=== PATIENT | female | born 1970 | race Caucasian/White ===

== ENCOUNTER → 2020-02-24 10:43 | Outpatient (CLI) | payer MEDICARE ==
--- NOTE | ~2020-02-24 | ST ---
PATIENT:DAYAN PINK MEDICAL RECORD: [id number] SEX: F LOCATION:[facility] ORDER #: ADMISSION DATE: 02/24/20 AGE OF PATIENT: 49 REFERRING PHYSICIAN: INTERPRETING PHYSICIAN: STEVEN MALDONADO MD DATE OF SERVICE: 02/24/2020 Nuclear stress test INDICATION: Angina and coronary artery disease. She was exercised on standard Lexiscan protocol with 33 mCi of sestamibi injected at peak stress, 11 mCi were used previously for rest images. FINDINGS: Gated SPECT reveals preserved ejection fraction at 70% with good wall motion and thickening and brightening throughout all segments. SPECT IMAGING: Cardiolite was used as myocardial perfusion agent. There is reversibility anteriorly, this includes the basal, mid, apical, and anterior segments. The degree of reversibility is moderate. The amount of myocardium involved is moderate. OVERALL IMPRESSION: 1. This is an intermediate risk abnormal nuclear stress test with reversible ischemia anteriorly. 2. Gated SPECT reveals preserved ejection fraction at 70%, current scan does suggest presence of hemodynamically significant coronary artery disease and is intermediate risk abnormal. TRANSINT:[id number] Voice Confirmation ID: [id number] DOCUMENT ID: [id number] STEVEN MALDONADO MD CC: [id number] DICTATION DATE: 02/25/20 1116 ANALYSIS DIRECTOR: 02/25/201926 DEP CLI 02/24/20 [address] [place] [address]
== END | disposition home or self-care (01) ==
LOC: D.HCCARDIO 10:43
PROVIDERS: ATTEND Internal Medicine Interventional Cardiology
DX: I20.9 Angina pectoris, unspecified (principal)

== ENCOUNTER 2020-03-04 07:37 | Outpatient (CLI) | payer MEDICARE ==
[~2020-03-04] VITALS: Ht 157.5 cm; Wt 71.8 kg
--- NOTE | ~2020-03-04 | HEMODYNAMI ---
PATIENT:DAYAN PINK MEDICAL RECORD: [id number] : 74 LOCATION:[facility] ADMISSION DATE: 03/04/20 Generatedon:03/04/202011:26 Patient name: DAYAN PINK Patient #: [id number] SSN: : 1970 Date of study: 03/04/2020 Page: Of Hemodynamic Procedure Report Patient Data Patient Demographics Procedure consent was obtained First Name: DAYAN Gender: Female Last Name: JOESPH : 1970 [facility] Initial: EMILY Age: 49 year(s) Patient #: [id number] Race: Unknown Additional ID: [id number] Contact details Address: [address] [place] [address] State: [place] City: [place] Zip code: [address] Past Medical History Performed procedures and imaging results Date Procedure Procedure Results Comments Stress testing Positive->Intermediate with SPECT MPI risk Allergies Allergen Reaction Date Comments Reported Other allergy 03/04/2020 MORPHINE, CODIENE Admission Admission Data Admission Date: 03/04/2020 Admission Time: 7:37 Lab Results Lab Result Date: 03/04/2020 Lab Result Time: 0:00 Biochemistry Name Units Result Min Max BUN mg/dl 14 --(--*-)-- 7 18 Creatinine mg/dl 0.8 --(-*--)-- 0.6 1.3 eGFR ml/min 81 *-(----)-- 90 120 NONAFRICAN CBC Name Units Result Min Max Hematocrit % 34.6 *-(----)-- 42 54 Hemoglobin g/dl 11.2 *-(----)-- 13.5 17.5 Procedure Procedure Types Cath Procedure Diagnostic Procedure LHC LH w/Coronaries Sedation Charges Moderate Sedation up to 15 minutes Procedure Description Procedure Date Procedure Date: 03/04/2020 Procedure Start Time: 10:46 Procedure End Time: 10:59 Procedure Staff Name Function Henrique Robledo MD Performing Physician Gaby Lafleur RT Scrub Evonne Knight RT Monitor Kendy Andrews RN Nurse Procedure Data Cath Procedure Fluoroscopy Diagnostic fluoroscopy Total fluoroscopy Time: 2.6 time: 2.6 min min Diagnostic fluoroscopy Total fluoroscopy dose: 320 dose: 320 mGy mGy Contrast Material Contrast Material Type Amount (ml) Isovue 300 35 Entry Location Entry Primary Successful Side Size Upsize Upsize Entry Closure Johnson ccessful Closure Location (Fr) 1 (Fr) 2 (Fr) Remarks Device Remarks Radial Right 6 Fr Mechanical artery Short Compression Estimated blood loss: 5 ml Diagnostic catheters Device Type Used For End Catheter Placement DIAGNOSTIC Peck 110cm 5 Procedure Fr catheter ([id number]) DIAGNOSTIC AR MOD 5Fr Procedure Catheter ([id number]) Procedure Complications No complications Procedure Medications Medication Administration Route Dosage 0.9% NaCl I.V. 100 ml/hr Oxygen etCO2 Nasal cannula 2 l/min Lidocaine 2% added to field 20 Heparin Flush Bag added to field 2 bags (1000units/500ml NS) Radial Cocktail added to field 1 syringe (Verapamil 2mg/Nitro 400mcg/Heparin 1500units) Versed I.V. 2 mg Fentanyl I.V. 50 mcg Versed I.V. 2 mg Fentanyl I.V. 50 mcg Hemodynamics Rest HGB: 11.2 (g/dl) Heart Rate: 106 (bpm) Pressure Samples Time Site Value (mmHg) Purpose Heart Use Rate(bpm) 10:50 LV 135/5,10 Snapshot 106 10:51 LV 134/8,8 Pullback 89 10:51 AO 135/86(109) Pullback 89 Gradients Valve Time Site 1 Site 2 Mean SEP/DFP Peak To Heart Use (mmHg) (sec/min) Peak Rate (mmHg) (bpm) Aortic 10:51 LV AO 0 8 0 89 134/8,8 135/86(109) Calculations Valve P-P Mean Valve Index Valve Source Name Gradient Area Flow (cm2) Aortic 0 0 0 0 Snapshots Pre Cath Intra NCS Post Cath Vital Signs Time Heart Resp SPO2 etCO2 NIBP (mmHg) Rhythm Pain Sedation Rate (ipm) (%) (mmHg) Status Level (bpm) 10:38:04 74 12 100 45.3 154/89(127) NSR 0 (11) 10(A) , No pain 10:42:22 79 16 99 43 148/88(133) NSR 0 (11) 10(A) , No pain 10:46:36 79 17 100 45.3 142/89(122) NSR 0 (11) 10(A) , No pain 10:50:56 88 11 93 43 143/75(111) NSR 0 (11) 10(A) , No pain 10:55:16 94 18 98 42 139/78(106) NSR 0 (11) 10(A) , No pain 10:59:31 84 11 98 46.8 137/84(104) NSR 0 (11) 10(A) , No pain Medications Time Medication Route Dose Verified Delivered Reason Notes E ffectiveness by by 10:32:40 0.9% NaCl I.V. 100 Henrique Kendy used for ml/hr Venkat Darryl procedure MD DIANA 10:32:47 Oxygen etCO2 2 l/min Henrique Kendy used for Nasal [facility] procedure cannula MD DIANA 10:32:53 Lidocaine 2% added 20ml Henrique Duenas for local to vial [facility] anesthetic field MD FU 10:33:00 Heparin Flush added 2 bags Henrique Duenas used for Bag to [facility] procedure (1000units/500ml field MD FU NS) 10:33:07 Radial Cocktail added 1 Henrique Duenas used for ([facility] MD FU 400mcg/Hepari 10:44:14 Versed I.V. 2 mg Henrique Kendy for [facility] sedation MD DIANA 10:44:19 Fentanyl I.V. 50 mcg Henrique Kendy for [facility] sedation MD DIANA 10:50:02 Versed I.V. 2 mg Henrique Kendy for [facility] sedation MD DIANA 10:50:10 Fentanyl I.V. 50 mcg Henrique Kendy for [facility]kat[facility] sedation MD DIANAclam dredger Log Time Note 10:20:23 Informed consent obtained and on chart 10:20:55 Procedure Status Elective Heart Cath (OP). 10:20:56 Gaby Lafleur RT(R) sent for patient. Start room use. 10:20:57 Time tracking: Regular hours (M-F 7:00 - 5:00) 10:21:00 Plan of Care:Hemodynamics will remain stable., Cardiac rhythm will remain stable., Comfort level will be maintained., Respiratory function will remain adequate., Patient/ family verbilizes understanding of procedure., Procedure tolerated without complication., Recovers from procedure without complications.. 10::29 Patient allergic to Other allergyMORPHINE, CODIENE 10::32 Lab Result : Hemoglobin 11.2 g/dl :: Lab Result : Hematocrit 34.6 % :: Lab Result : eGFR NONAFRICAN 81 ml/min 10::32 Lab Result : BUN 14 mg/dl :: Lab Result : Creatinine 0.8 mg/dl 10:27:02 Dentures? No ? 10:27:03 Previous problem with sedation/anesthesia? No ? 10:27:04 Warm blankets applied, and stella hugger turned on for patient comfort. 10:27:05 Is patient on blood thinner?No 10:27:09 Opens mouth fully? Yes 10:27:09 H&P Date Dictated: 02/04/2020 Within 30 days and on chart., H&P Addendum completed by physician on day of procedure. (MUST COMPLETE FOR ALL OUTPATIENTS). 10:27:11 Patient NPO since Midnight. 10:27:12 Pre-procedure instructions explained to patient. 10:27:18 Lab results completed and on chart. 10:27:20 Correct patient and procedure confirmed by team. 10:27:24 Sticks out tongue? Yes 10:27:27 Snore? Yes 10:27:28 Patient not . Patient has had tubal. 10:27:29 Is the patient allergic to Iodine/contrast media? No. 10:27:31 Pre-op teaching completed and patient verbalized understanding. 10:27:35 Patient received from Pre/Post Procedure Room to CCL 1 Alert and oriented. Tansferred to table in Supine position. 10:27:38 Airway obstruction? No ? 10:27:40 Sleep apnea? No 10:27:44 ----Pre-sedation anethsthesia assessment.---- 10:27:45 IV patent on arrival in left hand with 0.9% NaCl at [facility]. 10:27:47 Was the patient premedicated? Yes 10:27:47 Rhythm: sinus rhythm 10:27:50 Family unavailable. 10:27:54 Deviated septum? No 10:28:39 Stress Test: yes; abnormal ANTERIOR 10:30:03 Risk of Mortality: .1 10:30:06 Risk of blood transfusion: 3.6 10:30:08 Risk of PAUL: 2.2 10:32:40 0.9% NaCl 100 ml/hr I.V. was administered by Kendy Andrews RN; used for procedure; Verbal order read back and verified. 10:32:47 Oxygen 2 l/min etCO2 Nasal cannula was administered by Kendy Andrews RN; used for procedure; Verbal order read back and verified. 10:32:53 Lidocaine 2% 20ml vial added to field was administered by Henrique Robledo MD; for local anesthetic; Verbal order read back and verified. 10:33:00 Heparin Flush Bag (1000units/500ml NS) 2 bags added to field was administered by Henrique Robledo MD; used for procedure; Verbal order read back and verified. 10:33:07 Radial Cocktail (Verapamil 2mg/Nitro 400mcg/Heparin 1500units) 1 syringe added to field was administered by Henrique Robledo MD; used for procedure; Verbal order read back and verified. 10:36:34 Right Radial & Right Groin area was prepped with chlora-prep and draped in sterile fashion 10:36:36 Alarms reviewed by R. N. 10:36:37 Sharps counted by scrub and verified by R.N. 10:36:43 Use device set Radial Dx or PCI 10:36:45 ACIST Syringe (99664) opened to sterile field. 10:36:46 Bag Decanter (2002) opened to sterile field. 10:36:46 Medline Cath Pack ([id number]) opened to sterile field. 10:36:47 ACIST Hand Control (85720) opened to sterile field. 10:36:48 ACIST Manifold (71406) opened to sterile field. 10:36:50 MBrace Wrist Support ([id number]) opened to sterile field. 10:36:50 Vital chart was started 10:36:54 SHEATH 6FR RAIN (7807660) opened to sterile field. 10:36:55 EMERALD Guide Wire (938-903) opened to sterile field. 10:42:45 Physician arrived 10:42:46 --------ALL STOP TIME OUT------ 10:42:47 Final Timeout: patient, procedure, and site verified with staff and physician. All members of the team are in agreement. 10:42:51 Right Radial & Right Groin site verified by team. 10:43:07 Fire Safety Assessment: A--An alcohol-based skin anteseptic being used preoperatively., C--Open oxygen or nitrous oxide is being used., D--An ESU, laser, or fiber-optic light is being used. 10:43:11 Physical assessment completed. ASA score P 2 - A patient with mild systemic disease as per Henrique Robledo MD. 10:43:17 2) 60-89 Mildly reduced kidney function, and other findings (as for stage 1) point to kidney disease. 10:43:25 Maximum allowable contrast dose (3.7 X eGFR X 0.75)225 ml. 10:43:31 Sedation plan: IV Moderate Sedation Medication:Versed, Fentanyl 10:43:59 Zero performed for pressure channel P1 10:44:14 Versed 2 mg I.V. was administered by Kendy Andrews RN; for sedation; Verbal order read back and verified. 10:44:19 Fentanyl 50 mcg I.V. was administered by Kendy Andrews RN; for sedation; Verbal order read back and verified. 10:46:20 Procedure started. 10:46:21 Full Disclosure recording started 10:46:31 Local anesthetic to right radial artery with Lidocaine 2% by Henrique Robledo MD.INITIAL ACCESS ONLY 10:46:48 A 6 Fr Short sheath was inserted into the Right Radial artery 10:48:27 EVONNE NOTIFIED PROCEDURE STARTED. 10:48:46 A DIAGNOSTIC Peck 110cm 5 Fr catheter ([id number]) was advanced over the wire and used for Procedure. 10:49:51 Injector settings: Ml/sec: 5, Volume: 15, 10:50:02 Versed 2 mg I.V. was administered by Kendy Andrews RN; for sedation; Verbal order read back and verified. 10:50:09 LV gram done using WARREN 10:50:10 Fentanyl 50 mcg I.V. was administered by Kendy Andrews RN; for sedation; Verbal order read back and verified. 10:50:13 LV hemodynamics recorded. 10:51:36 EF : 55 % 10:51:57 LCA angiography performed. 10:52:04 Injector settings: Ml/sec: 3, Volume: 6, 10:54:38 Catheter removed. 10:55:42 A DIAGNOSTIC AR MOD 5Fr Catheter (128223S) was advanced over the wire and used for Procedure. 10:55:59 RCA angiography performed. 10:56:07 Injector settings: Ml/sec: 3, Volume: 5, 10:56:30 Catheter removed. 10:56:37 ACCDominant side:Right 10:56:43 ZEPHYR REGULAR TR BAND (923968) opened to sterile field. 10:56:58 Sheath removed intact; hemostasis achieved with Mechanical Compression to the Right Radial artery. 10:57:02 Procedure ended.(Physican Out) 10:57:15 Contrast amount:Isovue 300 35ml. 10:57:25 Fluoroscopy time 02.60 minutes. 10:57:33 Fluoroscopy dose: 320 mGy 10:57:33 Flurop Dose total: 320 10:57:42 Dose Area Product 91102 mGy/cm. 10:57:46 Maximum allowable dose exceeded? No. 10:57:48 Sharps counted by scrub and verified by R.N. 10:57:51 Mims band inflated with 10cc of air. 10:57:54 Insertion/operative site no bleeding no hematoma. 10:58:04 Post right radial artery:stable 10:58:11 Post-procedure physical assessment completed. ASA score P 2 - A patient with mild systemic disease as per Henrique Robledo MD. 10:58:17 Post procedure rhythm: unchanged. 10:58:21 Estimated blood loss: 5 ml 10:58:23 Post procedure instruction explained to patient.Patient verbalizes understanding. 10:58:25 Patient needs reinforcement of post procedure teaching. 10:58:39 Procedure type changed to Cath procedure, Diagnostic procedure, LHC, C w/Coronaries, Sedation Charges, Moderate Sedation up to 15 minutes 10:58:41 Procedure and supply charges have been captured, reviewed, submitted and are correct. 10:58:49 Procedure Complication : No complications 10:59:07 Vital chart was stopped 10:59:13 [facility] Findings: mild to moderate CAD (<70%) 10:59:15 Operative report dictated upon procedure completion. 10:59:18 See physician's report for complete and final results. 10:59:22 Report given to Pre/Post Procedure Room. 10:59:27 Patient transfered to Pre/Post Procedure Room with Stretcher. 10:59:31 Full Disclosure recording stopped 10:59:31 Procedure ended. 10:59:34 End room use (Document Last) Device Usage Item Name Manufacture Quantity Catalog Hospital Part Current Minima l Lot# / Number Charge Number Stock Stock Serial# Code ACIST Acist 1 69339 [id number] 20 Syringe Medical (51337) Systems Inc Medline Medline 1 [id number] 31014 508632 5 Cath Pack ([id number]) Bag Microtek 1 2001S 657334 72099 961440 5 Decanter Medical Inc. () ACIST Hand Acist 1 35703 007091 032219 503783 5 Control Medical (32736) Systems Inc ACIST Acist 1 76281 778182 610897 892841 5 Manifold Medical (39899) Systems Inc MBrace Advanced 1 140-0250-00 444395 12980 911233 5 Wrist Vascular Support Dynamics ([id number]) SHEATH 6FR Cardinal 1 [id number] 580037 4988494 932961 5 [facility] Health (8198456) EMERALD Cardinal 1 502-455 893144 566408 160906 5 Guide Wire Health (502-199) DIAGNOSTIC Terumo 1 40-5961 226923 174238 099560 5 Peck 110cm 5 Fr catheter (129837) DIAGNOSTIC Cardinal 1 [id number] 363125 838839 556511 15 AR MOD 5Fr Health Catheter (340108I) ZEPHYR Cardinal 1 121922 494349 3630337 740888 5 REGULAR TR Health BAND (177839) Signature Audit [place] Stage Time Signature Unsigned Intra-Procedure 03/04/2020 Evonne 11:00:51 AM Natinemann RT(R) (CV) Intra-Procedure 03/04/2020 Kendy Andrews 11:01:28 AM RN Intra-Procedure 03/04/2020 Henrique Robledo MD 11:01:54 AM Yann FU 03/04/2020 11:14:59 AM Intra-Procedure 03/04/2020 Evonne 11:25:56 AM Antonia RT(R) (CV) Intra-Procedure 03/04/2020 Henrique Ryan 11:26:24 AM Yann FU [address] [address]
[2020-03-04] MEDS ORDERED: GABAPENTIN300 MG PO (07:59)
[2020-03-04] MEDS ORDERED: ELAVIL25 MG PO (07:59)
[2020-03-04] MEDS ORDERED: TRAMADOL HCL E200 M1 PO (08:00)
[2020-03-04] MEDS ORDERED: ZANAFLEX4 MG PO (08:00)
[2020-03-04] MEDS ORDERED: IBUPROFEN800 MG PO (08:01)
[2020-03-04 08:11] VITALS: BP 152/85; Ht 157.5 cm; Wt 71.8 kg
[2020-03-04 08:12] LABS: BASOPHILS 0.8 % (0-2); EOSINOPHILS 3.8 % (0-7); HEMATOCRIT 34.6 % (36.0-48.0); HEMOGLOBIN 11.2 g/dL (12-16); IMMATURE GRANULOCYTES 0.2 % (0-5); LYMPHOCYTES 39.2 % (15-50); MCH 29.7 pg (26.0-34.0); MCHC 32.4 g/dL (31.0-37.0); MCV 91.8 fL (80.0-100.0); MEAN PLATELET VOLUME 8.1 fL (7.4-10.4); MONOCYTES 7.8 % (2-11); NEUTROPHILS 48.2 % (40-80); PLATELET COUNT 330 10x3/uL (130-400); RBC 3.77 10x6/uL (4.00-5.40); RDW 13.3 % (11.5-14.5); WBC 6.7 10x3/uL (4.8-10.8)
[2020-03-04 08:21] LABS: ALT (SGPT) 46 U/L (10-68); CALC OSMOLALITY 275 mosm/kg (275-300); CALCIUM 8.7 mg/dL (8.5-10.1); CARBON DIOXIDE 27.6 mmol/L (21.0-32.0); CHLORIDE - SERUM 103 mmol/L (98-107); CHOL - HDL RATIO 3.4 ratio (2.3-4.1); CHOLESTEROL, TOTAL 232 mg/dL (0-200); CREATININE - SERUM 0.8 mg/dL (0.6-1.3); GLUCOSE 79 mg/dL (74-106); HDL CHOLESTEROL 68 mg/dL (32-96); LDL CHOLESTEROL 153 mg/dL (0-100); LDL-HDL RATIO 2.3 ratio (1.5-3.5); SODIUM 138 mmol/L (136-145); TRIGLYCERIDE 59 mg/dL (30-200); UREA NITROGEN 14 mg/dL (7-18); eGFR NON AFRICAN AMERICAN 81 mL/min (90-120)
--- NOTE | 2020-03-04 11:10 | NUR ---
PT RECEIVED BACK TO ROOM VIA STRETCHER FROM BAGGAGE CLERK FOR RECOVERY. PT DROWSY BUT VERBALLY AROUSABLE. PT DENIES PAIN OR DISCOMFORT. ZYPHER BAND AND IMMOBILIZER TO R WRIST/ARM. NO BLEEDING OR S/S HEMATOMA NOTED. DRESSING CDI. PT INSTRUCTED NOT TO USE THAT ARM, SHE VERALIZED UNDERSTANDING. ARM PINK AND WARM, CAP REFILL BRISK. PT PLACED ON CARDIAC MONITORS, HR NSR RATE 86, BP 139/82, RR 14, SAT 97. IV PATENT INFUSING VIA ORDERS. CALL LIGHT IN REACH
--- NOTE | 2020-03-04 11:30 | NUR ---
PT SITTING UP IN BED, DENIES PAIN OR DISCOMFORT. ZYPHER BAND IN PLACE, NO BLEEDING OR S/S HEMATOMA NOTED. CAP REFILL BRISK. PT TOLERATING PO FLUIDS W/O NAUSEA, SANDWICH TRAY SERVED. CALL LIGHT IN REACH. CALLED WITH UPDATE AND DISCHARGE INFORMATION PER PT REQUEST.
--- NOTE | 2020-03-04 12:15 | NUR ---
PT RESTING W/O COMPLAINTS. VSS. ZBAND AND IMMOBILIZER IN PLACE NO S/S BLEEDING OR SWELLING NOTED. CALL LIGHT IN REACH
--- NOTE | 2020-03-04 12:25 | NUR ---
5CC AIR REMOVED FROM ZBAND, NO BLEEDING OR SWELLING NOTED.
--- NOTE | 2020-03-04 12:45 | NUR ---
DISCHARGE INSTRUCTIONS REVIEWED W PT, SHE VERBALIZED UNDERSTANDING. IV REMOVED W CATH INTACT, MONITORS REMOVED. REMAINING AIR REMOVED FROM Z BAND, NO BLEEDING OR S/S HEMATOMA NOTED. PT UP TO DRESS FOR DISCHARGE
--- NOTE | 2020-03-04 12:58 | NUR ---
ZBAND REMOVED, 2X2 AND SM TEGADERM DRESSING APPLIED. NEW ARMBOARD REPLACED. PT AMBULATED TO BR, VOIDING W/O DIFFICULITY.
--- NOTE | 2020-03-04 13:05 | NUR ---
PT DISCHARGED VIA WC TO WAITING IN PRIVATE VEHICLE. PT HAD ALL BELONGINGS AND DISCHARGE INFORMATION IN HAND.
--- NOTE | 2020-03-05 08:47 | OP ---
PATIENT NAME: DAYAN PINK MEDICAL RECORD: [id number] :74 LOCATION:[facility] ADMISSION DATE: SURGEON: JOYCE CALVILLO MD DATE OF OPERATION: 03/04/2020 PROCEDURE: Left heart catheterization, selective coronary angiography, right radial approach. CATHETERS: Radial sheath, Luttrell catheter. The procedure was well tolerated. The patient was returned to [facility]. Sheath was removed. TR band was placed. FINDINGS: Left ventriculography in 30-degree WARREN view; normal wall motion and normal systolic function. CORONARY ANATOMY: LEFT MAIN: Left main is free of disease. LAD: Free of disease in the diagonal system. CIRCUMFLEX: Free of disease in the marginal system. RIGHT CORONARY ARTERY: Dominant artery, gives rise to PDA, free of disease. IMPRESSION: Normal left ventricular systolic function, normal coronary anatomy. TRANSINT:[id number] Voice Confirmation ID: [id number] DOCUMENT ID: [id number] JOYCE CALVILLO MD at 0847 CC: [id number] DICTATION DATE: 03/04/20 1109 AIRFREIGHT LOADING SUPERVISOR: 03/04/20 1200 DEP CLI 03/04/20 [place] [id number] [place] [id number]
== END 2020-03-04 13:05 | disposition home or self-care (01) ==
LOC: D.CATH 07:37
PROVIDERS: ATTEND Internal Medicine Interventional Cardiology
DX: I20.9 Angina pectoris, unspecified (principal); I10 Essential (primary) hypertension; R01.1 Cardiac murmur, unspecified; R09.89 Other specified symptoms and signs involving the circulatory and respiratory systems

== ENCOUNTER 2020-05-26 07:01 | Emergency (ER) | payer MEDICARE ==
[~2020-05-26] VITALS: Ht 157.5 cm; Wt 81.8 kg
[~2020-05-26 07:01] MED LIST: ELAVIL25 MG PO; GABAPENTIN300 MG PO; IBUPROFEN800 MG PO; TRAMADOL HCL E200 M1 PO; ZANAFLEX4 MG PO
[2020-05-26 07:25] VITALS: Ht 157.5 cm; Wt 81.8 kg
[2020-05-26] MEDS ORDERED: BACLOFEN10 MG PO (07:27)
[2020-05-26] MEDS ORDERED: KEFLEX500 MG PO (07:58)
[2020-05-26] MEDS ORDERED: ACETAMINOPHEN500 M1 PO (07:58)
[2020-05-26] MEDS ORDERED: IBUPROFEN800 MG PO (07:58)
[2020-05-26 08:02] LABS: CALCIUM 8.3 mg/dL (8.5-10.1); CARBON DIOXIDE 27.1 mmol/L (21.0-32.0); CREATININE - SERUM 1.1 mg/dL (0.6-1.3); POTASSIUM - SERUM 4.1 mmol/L (3.5-5.1)
[2020-05-26 08:07] LABS: ALBUMIN 3.6 g/dL (3.4-5.0); BILIRUBIN - TOTAL 0.28 mg/dL (0.2-1.3); PROTEIN - SERUM 6.9 g/dL (6.4-8.2)
[2020-05-26 08:09] LABS: BASOPHILS 0.7 % (0-2); EOSINOPHILS 5.5 % (0-7); HEMATOCRIT 34.6 % (36.0-48.0); HEMOGLOBIN 11.2 g/dL (12-16); IMMATURE GRANULOCYTES 0.2 % (0-5); LYMPHOCYTES 37.1 % (15-50); MCHC 32.4 g/dL (31.0-37.0); MCV 89.6 fL (80.0-100.0); MEAN PLATELET VOLUME 7.9 fL (7.4-10.4); MONOCYTES 9.6 % (2-11); NEUTROPHILS 46.9 % (40-80); PLATELET COUNT 345 10x3/uL (130-400); RBC 3.86 10x6/uL (4.00-5.40); RDW 12.5 % (11.5-14.5); WBC 5.5 10x3/uL (4.8-10.8)
[2020-05-26 08:48] VITALS: BP 146/87
== END 2020-05-26 08:49 | disposition home or self-care (01) ==
LOC: D.ER 07:01
PROVIDERS: Family Medicine
DX: K02.9 Dental caries, unspecified (principal); K08.89 Other specified disorders of teeth and supporting structures; G62.9 Polyneuropathy, unspecified

== ENCOUNTER → 2020-06-15 12:39 | Outpatient (CLI) | payer MEDICARE ==
[2020-05-26 07:25] VITALS: BMI 33.0
[~2020-06-15 12:39] MED LIST changes: +ACETAMINOPHEN500 M1 PO; +BACLOFEN10 MG PO; +KEFLEX500 MG PO
== END | disposition home or self-care (01) ==
LOC: D.RAD 12:39
PROVIDERS: ATTEND Neurological Surgery
DX: M54.16 Radiculopathy, lumbar region (principal)

== ENCOUNTER 2020-06-22 10:42 | Emergency (ER) | payer MEDICARE ==
[~2020-06-22] VITALS: Ht 157.5 cm; Wt 80.9 kg
[2020-06-22 11:05] VITALS: Ht 157.5 cm; Wt 80.9 kg
[2020-06-22 11:37] LABS: BASOPHILS 0.9 % (0-2); HEMATOCRIT 35.7 % (36.0-48.0); HEMOGLOBIN 11.8 g/dL (12-16); IMMATURE GRANULOCYTES 0.2 % (0-5); LYMPHOCYTES 33.4 % (15-50); MCH 29.1 pg (26.0-34.0); MCHC 33.1 g/dL (31.0-37.0); MCV 88.1 fL (80.0-100.0); MEAN PLATELET VOLUME 7.8 fL (7.4-10.4); MONOCYTES 9.2 % (2-11); NEUTROPHILS 50.3 % (40-80); PLATELET COUNT 289 10x3/uL (130-400); RBC 4.05 10x6/uL (4.00-5.40); RDW 12.4 % (11.5-14.5); WBC 5.3 10x3/uL (4.8-10.8)
[2020-06-22 11:46] LABS: APTT 29.3 SECONDS (22.8-39.4); INR 0.94 (0.85-1.17); PROTIME 12.5 SECONDS (11.6-15.0)
[2020-06-22 11:52] LABS: CALC OSMOLALITY 278 mosm/kg (275-300); CALCIUM 8.7 mg/dL (8.5-10.1); CARBON DIOXIDE 27.6 mmol/L (21.0-32.0); CHLORIDE - SERUM 106 mmol/L (98-107); CREATININE - SERUM 0.8 mg/dL (0.6-1.3); GLUCOSE 94 mg/dL (74-106); SODIUM 140 mmol/L (136-145); UREA NITROGEN 13 mg/dL (7-18); eGFR NON AFRICAN AMERICAN 81 mL/min (90-120)
[2020-06-22 12:05] LABS: ALBUMIN 3.5 g/dL (3.4-5.0); ALKALINE PHOSPHATASE 79 U/L (30-120); ALT (SGPT) 14 U/L (10-68); BILIRUBIN - TOTAL 0.18 mg/dL (0.2-1.3); CKMB 1.8 U/L (0.0-3.6); CREATINE KINASE 160 UL (21-215); PRO BNP 94 pg/mL (0-125); PROTEIN - SERUM 7.1 g/dL (6.4-8.2)
[2020-06-22 12:18] LABS: TROPONIN-I < 0.017 ng/mL (0.000-0.060)
[2020-06-22 12:33] LABS: BILIRUBIN NEGATIVE (NEGATIVE); GLUCOSE NEGATIVE (NEGATIVE); KETONE NEGATIVE (NEGATIVE); NITRITE NEGATIVE (NEGATIVE); UROBILINOGEN NORMAL (NORMAL)
[2020-06-22 12:34] LABS: BACTERIA FEW /hpf (NEGATIVE); RED CELLS - URINE 0-5 /hpf (0-5); WHITE CELLS - URINE OCC /hpf (NEGATIVE)
[2020-06-22 14:19] VITALS: BP 113/75
== END 2020-06-22 13:55 | disposition home or self-care (01) ==
LOC: D.ER 10:42
PROVIDERS: Family Medicine
DX: R60.0 Localized edema (principal); R53.1 Weakness; I10 Essential (primary) hypertension